=== PATIENT | male | born 1995 | race American Indian/Alaskan Native ===

== ENCOUNTER 2017-06-21 19:25 | Emergency (ER) | payer BC, OTHER ==
--- NOTE | 2017-06-21 22:38 | Emergency Department Report ---
HPI - General Chief Complaint: Dental/Oral Time Seen by Provider: 06/21/17 22:36 - HPI HPI: The patient is a 21-year-old male who presents to ED complaining of 8/10 pain in the right side of his mouth x 3 days . Patient states that the pain started 5 days ago and has increased in severity over the last 2 days. The pain is exacerbated by eating and opening of the mouth. Patient states that it radiates towards ear. Patient describes a as a throbbing, pressure-like sensation. Patient states otherwise well and has no other complaints. Patient has had no fevers and no chills. No chest pain, no shortness of breath. No abdominal pain. No shortness of breath or recent trauma to the face. ED Past Medical Hx - Past Medical History Previous Medical History?: No - Surgical History Past Surgical History?: No - Social History Smoking Status: Never Smoker Substance Use Type: None - Medications Home Medications: Home Medications Medication Instructions Recorded Confirmed Last Taken Type Acetaminophen/Codeine [Tylenol 1 tab PO Q6H #10 tablet 06/21/17 Unknown Rx /Codeine # 3 tab] Amoxicillin/K Clav Tab [Augmentin 1 each PO BID #20 tablet 06/21/17 Unknown Rx 875MG TAB] Ibuprofen [Motrin 400 MG tab] 400 mg PO Q8H PRN #20 tablet 06/21/17 Unknown Rx ED Review of Systems ROS: Stated complaint: TOOTHACHE Other details as noted in HPI Constitutional: denies: chills, fever Eyes: denies: eye pain, eye discharge, vision change ENT: dental pain. denies: ear pain, throat pain, hearing loss, congestion Respiratory: denies: cough, shortness of breath, wheezing Cardiovascular: denies: chest pain, palpitations Endocrine: no symptoms reported Gastrointestinal: denies: abdominal pain, nausea, diarrhea Genitourinary: denies: urgency, dysuria Musculoskeletal: denies: back pain, joint swelling, arthralgia Skin: denies: rash, lesions Neurological: denies: headache, weakness, paresthesias Psychiatric: denies: anxiety, depression Hematological/Lymphatic: denies: easy bleeding, easy bruising Physical Exam - Physical Exam Vital Signs: Vital Signs 06/21/17 19:35 Temperature 99.4 F Pulse Rate 57 L Respiratory 17 Rate Blood Pressure 135/95 O2 Sat by Pulse 99 Oximetry Physical Exam: GENERAL: Alert and oriented x3, no apparent distress, Normal Gait, atraumatic. HEAD: Head is normocephalic and a-traumatic. EYES: Extra ocular muscles are intact. Pupils are equal, round, and reactive to light and accommodation. EARS: symetrical, atraumatic, non tender, ear canal clear and moderate cerumen, tympanic membrance non inflamed. gross auditory nml bilaterally. NOSE: Nose symetrical, Nontender,Nares appeared normal. MOUTH:Mouth is well hydrated and without lesions. Tonsils nonerythematous or swollen, Uvula midline, Tongue not elevated. Mucous membranes are moist. Posterior pharynx clear, no exudate or lesions. Patent airways. tooth #30 shows dental caries and Gingival enlargement tooth #30, tenderness to palpation , nontoxic bleeding no pus discharge NECK: Supple. Non edematous, No carotid bruits. No lymphadenopathy or thyromegaly. No C-spine tenderness LUNGS: Symetrical with respiration, No wheezing, no rales or crackles, CTAB. HEART: S1, S2 present, regular rate and rhythm without murmur, no rubs, no gallops. Non tender to palpation PSYCHIATRIC: Mood is congruent with affect, denies suicidal or homicidal ideations. SKIN: Warm and dry, No lesions, No ulceration or induration present. ED Course Vital Signs 06/21/17 19:35 Temperature 99.4 F Pulse Rate 57 L Respiratory 17 Rate Blood Pressure 135/95 O2 Sat by Pulse 99 Oximetry ED Medical Decision Making - Medical Decision Making 21-year-old female who presents with righ-sided Facial pain secondary to odontogenic caries ED course: Patient received 875 mg Augmentin, Tylenol No. 3. Odontogenic infection versus ear infection. Based upon history and physical examination, pain is a result of an infection of tooth number 30 and that the pain Pt feels on the right side of his face and towards the ear is referred pain from this infectious process. Pt has no evidence of acute impending airway compromise. At this point, patient will be discharged home on some antibiotics and pain trial, he will do well with an outpatient course of antibiotics. Follow up with the Dental Clinic as referred Vital signs are normal patient is in no acute distress. Pt had an effect uneventful ED stay Critical care attestation.: If time is entered above; I have spent that time in minutes in the direct care of this critically ill patient, excluding procedure time. ED Disposition Clinical Impression: Dental abscess, Pain, dental Disposition: DC- TO HOME OR SELFCARE Is pt being admited?: No Does the pt Need Aspirin: No Condition: Stable Instructions: Dental Abscess (ED), Dental Caries (ED), Toothache (ED) Prescriptions: Acetaminophen/Codeine [Tylenol /Codeine # 3 tab] 1 tab PO Q6H #10 tablet Amoxicillin/K Clav Tab [Augmentin 875MG TAB] 1 each PO BID #20 tablet Ibuprofen [Motrin 400 MG tab] 400 mg PO Q8H PRN #20 tablet PRN Reason: Pain Referrals: PRIMARY CARE,MD [Primary Care Provider] - 3-5 Days [facility] [Outside] - 3-5 Days [facility] [Outside] - 3-5 Days Forms: Accompanied Note, Work/School Release Form(ED) Time of Disposition: 23:29
[2017-06-21] MEDS ORDERED: TYLENOL #3 PO ONE (23:05)
[2017-06-21] MEDS ORDERED: AUGMENTIN 875 MG PO ONE (23:05)
[2017-06-21 23:46] VITALS: BP 125/78
== END 2017-06-21 23:46 | disposition home or self-care (01) ==
LOC: ED 19:25
DX: K04.7 Periapical abscess without sinus (principal)
CPT/HCPCS: 99282

== ENCOUNTER 2018-05-31 16:12 | Emergency (ER) | payer SELFPAY ==
[2018-05-31 16:16] VITALS: BP 114/79
[2018-05-31] MEDS ORDERED: MOTRIN PO ONE (17:11)
--- NOTE | 2018-05-31 18:12 | Emergency Department Report ---
ED Upper Extremity Inj HPI - General Chief Complaint: Extremity Injury, Upper Stated Complaint: DISLOCATED FINGER Time Seen by Provider: 05/31/18 17:02 Source: patient Mode of arrival: Ambulatory Limitations: No Limitations - History of Present Illness Initial Comments: This is a 22-year-old male nontoxic, well nourished in appearance, no acute signs of distress presents to the ED with c/o of left index finger pain 3 days. Patient stated that he was playing basketball and injured his finger during playing basketball. Patient denies any other trauma. Patient denies any numbness, tingling, fever, chills, nausea, vomiting, chest pain, shortness of breath, headache, stiff neck. Patient denies any joint swelling or joint redness. Patient stated has decreased range of motion due to pain. Patient denies any allergies or significant past medical history. MD Complaint: Injury to:: left, finger -: days(s) (3) Other Extremity Injury: Fingers: Left Other Injuries: none Place: outdoors Severity scale (0 -10): 8 Improves With: immobilization Worsens With: movement of extremity Context: direct blow Associated Symptoms: denies other symptoms. denies: weakness, numbness, neck pain, suspects foreign body, nausea/vomiting, heard/felt popping sensat - Related Data Previous Rx's Medication Instructions Recorded Last Taken Type Acetaminophen/Codeine [Tylenol 1 tab PO Q6H #10 tablet 06/21/17 Unknown Rx /Codeine # 3 tab] Amoxicillin/K Clav Tab [Augmentin 1 each PO BID #20 tablet 06/21/17 Unknown Rx 875MG TAB] Ibuprofen [Motrin 400 MG tab] 400 mg PO Q8H PRN #20 tablet 06/21/17 Unknown Rx Ibuprofen [Motrin] 600 mg PO Q8H PRN #30 tablet 05/31/18 Unknown Rx Allergies Allergy/AdvReac Type Severity Reaction Status Date / Time No Known Allergies Allergy Verified 05/31/18 16:15 ED Review of Systems ROS: Stated complaint: DISLOCATED FINGER Other details as noted in HPI Constitutional: denies: chills, fever Eyes: denies: eye pain, eye discharge, vision change ENT: denies: ear pain, throat pain Respiratory: denies: cough, shortness of breath, wheezing Cardiovascular: denies: chest pain, palpitations Endocrine: no symptoms reported Gastrointestinal: denies: abdominal pain, nausea, diarrhea Genitourinary: denies: urgency, dysuria Musculoskeletal: denies: back pain, joint swelling, arthralgia Skin: denies: rash, lesions Neurological: denies: headache, weakness, paresthesias Psychiatric: denies: anxiety, depression Hematological/Lymphatic: denies: easy bleeding, easy bruising ED Past Medical Hx - Past Medical History Previous Medical History?: No - Surgical History Past Surgical History?: No - Social History Smoking Status: Current Every Day Smoker Substance Use Type: None - Medications Home Medications: Home Medications Medication Instructions Recorded Confirmed Last Taken Type Acetaminophen/Codeine [Tylenol 1 tab PO Q6H #10 tablet 06/21/17 Unknown Rx /Codeine # 3 tab] Amoxicillin/K Clav Tab [Augmentin 1 each PO BID #20 tablet 06/21/17 Unknown Rx 875MG TAB] Ibuprofen [Motrin 400 MG tab] 400 mg PO Q8H PRN #20 tablet 06/21/17 Unknown Rx Ibuprofen [Motrin] 600 mg PO Q8H PRN #30 tablet 05/31/18 Unknown Rx ED Physical Exam - General Limitations: No Limitations General appearance: alert, in no apparent distress - Head Head exam: Present: atraumatic, normocephalic - Eye Eye exam: Present: normal appearance - ENT ENT exam: Present: mucous membranes moist - Neck Neck exam: Present: normal inspection - Respiratory Respiratory exam: Present: normal lung sounds bilaterally. Absent: respiratory distress - Cardiovascular Cardiovascular Exam: Present: regular rate, normal rhythm. Absent: systolic murmur, diastolic murmur, rubs, gallop - GI/Abdominal GI/Abdominal exam: Present: soft, normal bowel sounds - Rectal Rectal exam: Present: deferred - Extremities Exam Extremities exam: Present: normal inspection, full ROM, tenderness, normal capillary refill. Absent: joint swelling - Expanded Upper Extremity Exam Left General: Present: normal inspection Shoulder Exam: Present: normal inspection, full ROM. Absent: tenderness, swelling Upper Arm exam: Present: normal inspection, full ROM. Absent: tenderness, swelling Elbow exam: Present: normal inspection, full ROM. Absent: tenderness, swelling Forearm Wrist exam: Present: normal inspection, full ROM. Absent: tenderness, swelling Hand Wrist exam: Present: normal inspection, full ROM, tenderness, swelling. Absent: abrasion, laceration, ecchymosis, deformity, crepidus, dislocation, erythema, amputation, nail avulsion, subungual hematoma Neuro motor exam: Present: wrist extension intact, thumb opposition intact, thumb IP flexion intact, thumb adduction intact, fingers 2-5 abduction intact Neurosensory exam: Present: 2-point discrimination, radial nerve intact, ulnar nerve intact, median nerve intact Vascular: Present: vascular compromise, normal capillary refill, radial pulse, brachial pulse, ulnar pulse - Back Exam Back exam: Present: normal inspection - Neurological Exam Neurological exam: Present: alert, oriented X3 - Psychiatric Psychiatric exam: Present: normal affect, normal mood - Skin Skin exam: Present: warm, dry, intact, normal color. Absent: rash ED Course Vital Signs 05/31/18 16:15 Temperature 98.4 F Pulse Rate 86 Respiratory 16 Rate Blood Pressure 114/79 O2 Sat by Pulse 98 Oximetry - Reevaluation(s) Reevaluation #1: 05/31/18 18:12 Patient is speaking in full sentences with no signs of distress noted. ED Medical Decision Making - Medical Decision Making This is a 22-year-old female that presents with left finger strain. Patient is stable and was examined by me. X-ray has been obtained and dictated by the radiologist. Patient is notified of the x-ray report with noted by the patient. Patient does have normal gait with no tenderness and no joint swelling. No ecchymosis. no joint redness or swelling. Not warm to touch. No signs of cellulites present. Patient received a sliver finger metal splint for pain comfort. Post splint assessment: neurovasular intact; normal cap refill < 2 second; normal sensation; denies decreaed sensation; normal ROM of digits.. Patient was instructed to RICE therapy. Patient received Motrin for pain. Patient is discharged with Motrin. At time of discharge, the patient does not seem toxic or ill in appearance. No acute signs of distress noted. Patient agrees to discharge treatment plan of care. No further questions noted by the patient. Critical care attestation.: If time is entered above; I have spent that time in minutes in the direct care of this critically ill patient, excluding procedure time. ED Disposition Clinical Impression: Sprain of left index finger Qualifiers: Encounter type: initial encounter Sprain of finger site: unspecified site Qualified Code(s): S63.611A - Unspecified sprain of left index finger, initial encounter Disposition: TO HOME OR SELFCARE Is pt being admited?: No Does the pt Need Aspirin: No Condition: Stable Instructions: Finger Sprain (ED), RICE Therapy (ED) Additional Instructions: Follow-up with a primary care doctor in 3-5 days or if symptoms worsen and continue return to emergency room as soon as possible. Prescriptions: Ibuprofen [Motrin] 600 mg PO Q8H PRN #30 tablet PRN Reason: Pain Referrals: PRIMARY CAREMD [Primary Care Provider] - 3-5 Days LUZ BUNCH MD [Staff Physician] - 3-5 Days [facility] [Outside] - 3-5 Days Forms: Work/School Release Form(ED)
--- NOTE | 2018-05-31 19:02 | XRay Report ---
FINAL REPORT PROCEDURE: XR HAND 3+V RT TECHNIQUE: RIGHT hand radiographs, AP, lateral, and oblique views. HISTORY: Right finger pain. COMPARISON: No prior studies are available for comparison. FINDINGS: Fracture (s) and/or Dislocation(s): None . Alignment: Normal . Joint space(s): Normal . Soft tissues: Normal . Bone mineralization: Normal . Foreign bodies: None . IMPRESSION: No radiographic evidence of acute abnormality.
== END 2018-05-31 19:14 | disposition home or self-care (01) ==
LOC: ED 16:12
DX: S63.611A Unspecified sprain of left index finger, initial encounter (principal); F17.200 Nicotine dependence, unspecified, uncomplicated; W22.8XXA Striking against or struck by other objects, initial encounter; Y93.67 Activity, basketball; Y99.8 Other external cause status; Y92.39 Other specified sports and athletic area as the place of occurrence of the external cause

== ENCOUNTER 2018-11-26 17:05 | Emergency (ER) | payer SELFPAY ==
[2018-11-26 17:47] VITALS: BP 104/66
--- NOTE | 2018-11-26 17:50 | Emergency Department Report ---
Blank Doc - Documentation Documentation: 23 y o female presents complaing of n/v with generalized body aches x 1 week pos cough, throat pain denies cp,sob, PLAN labs, ua reevaluate
--- NOTE | 2018-11-26 18:12 | Emergency Department Report ---
ED N/V/D HPI - General Chief complaint: Nausea/Vomiting/Diarrhea Stated complaint: FLU S/SX Time Seen by Provider: 11/26/18 17:46 Source: patient, family Mode of arrival: Ambulatory Limitations: No Limitations - History of Present Illness Initial comments: This is a 23-year-old male here report that he has generalized weakness and nausea and diarrhea over the last couple days. His mom said it has been 3 days he has been having some coughing also. Mom reported the patient was having 10 but she did not take his temperature but he felt hot and she gave him Advil at 3 PM. Patient said he is feeling weak all over. Denies any shortness of breath or chest pain. Denies any earache nasal congestion or runny nose. Denies any abdominal pain. Denies any blood in vomit or in diarrhea. Patient has no medical problems. Denies any wheezing or stridor. Denies any urinary burning, frequency or urgency and denies any back pain. MD complaint: nausea, vomiting, diarrhea, other (upper respiratory symptoms) Onset/Timin -: days(s) Description of Vomiting: bilious Description of Diarrhea: water Associated Abdominal Pain: No (generalized aching to body) Location: diffuse Pain Scale: 8 Quality: aching Consistency: constant Improves with: none Worsens with: none Context: other (unknown) Associated Symptoms: myalgias, cough, diaphoresis, fever/chills, loss of appetite, malaise, nausea/vomiting, weakness. denies: chest pain, headaches, rash, dysuria, shortness of breath, syncope - Related Data Previous Rx's Medication Instructions Recorded Last Taken Type Acetaminophen/Codeine [Tylenol 1 tab PO Q6H #10 tablet 06/21/17 Unknown Rx /Codeine # 3 tab] Amoxicillin/K Clav Tab [Augmentin 1 each PO BID #20 tablet 06/21/17 Unknown Rx 875MG TAB] Ibuprofen [Motrin 400 MG tab] 400 mg PO Q8H PRN #20 tablet 06/21/17 Unknown Rx Ibuprofen [Motrin] 600 mg PO Q8H PRN #30 tablet 05/31/18 Unknown Rx ALBUTEROL Inhaler(NF) [VENTOLIN 2 puff IH Q6H PRN 1 Days #1 inha 11/26/18 Unknown Rx Inhaler(NF)] Dicyclomine [Bentyl] 40 mg PO QID 3 Days #12 tablet 11/26/18 Unknown Rx Doxycycline [Vibramycin CAP] 100 mg PO Q12HR 10 Days #20 capsule 11/26/18 Unknown Rx Famotidine [Pepcid] 20 mg PO BID 6 Days #12 tablet 11/26/18 Unknown Rx Promethazine [Phenergan TAB] 25 mg PO Q6HR PRN #16 tab 11/26/18 Unknown Rx guaiFENesin/DEXTROMETHORPHAN 10 ml PO Q6H 5 Days #200 liquid 11/26/18 Unknown Rx [Robitussin Cough-Chest Dm Liq] Allergies Allergy/AdvReac Type Severity Reaction Status Date / Time No Known Allergies Allergy Verified 11/26/18 17:45 ED Review of Systems ROS: Stated complaint: FLU S/SX Other details as noted in HPI Constitutional: chills, fever, malaise Eyes: denies: eye discharge ENT: throat pain. denies: ear pain, congestion Respiratory: cough. denies: shortness of breath, SOB with exertion, wheezing Cardiovascular: denies: chest pain, palpitations, dyspnea on exertion, edema, syncope Gastrointestinal: nausea, vomiting, diarrhea. denies: abdominal pain, constipation, hematemesis, melena, hematochezia Genitourinary: denies: urgency, dysuria, hematuria Musculoskeletal: myalgia. denies: back pain, joint swelling, arthralgia Skin: denies: rash Neurological: denies: headache, numbness, paresthesias, confusion, abnormal gait, vertigo ED Past Medical Hx - Past Medical History Previous Medical History?: No - Surgical History Past Surgical History?: No - Family History Family history: no significant - Social History Smoking Status: Never Smoker Substance Use Type: None - Medications Home Medications: Home Medications Medication Instructions Recorded Confirmed Last Taken Type Acetaminophen/Codeine [Tylenol 1 tab PO Q6H #10 tablet 06/21/17 Unknown Rx /Codeine # 3 tab] Amoxicillin/K Clav Tab [Augmentin 1 each PO BID #20 tablet 06/21/17 Unknown Rx 875MG TAB] Ibuprofen [Motrin 400 MG tab] 400 mg PO Q8H PRN #20 tablet 06/21/17 Unknown Rx Ibuprofen [Motrin] 600 mg PO Q8H PRN #30 tablet 05/31/18 Unknown Rx ALBUTEROL Inhaler(NF) [VENTOLIN 2 puff IH Q6H PRN 1 Days #1 inha 11/26/18 Unknown Rx Inhaler(NF)] Dicyclomine [Bentyl] 40 mg PO QID 3 Days #12 tablet 11/26/18 Unknown Rx Doxycycline [Vibramycin CAP] 100 mg PO Q12HR 10 Days #20 capsule 11/26/18 Unknown Rx Famotidine [Pepcid] 20 mg PO BID 6 Days #12 tablet 11/26/18 Unknown Rx Promethazine [Phenergan TAB] 25 mg PO Q6HR PRN #16 tab 11/26/18 Unknown Rx guaiFENesin/DEXTROMETHORPHAN 10 ml PO Q6H 5 Days #200 liquid 11/26/18 Unknown Rx [Robitussin Cough-Chest Dm Liq] ED Physical Exam - General Limitations: No Limitations General appearance: alert, in no apparent distress - Head Head exam: Present: atraumatic, normocephalic, normal inspection, other (normal exam) - Eye Eye exam: Present: normal appearance, PERRL, EOMI Pupils: Present: normal accommodation - ENT ENT exam: Present: normal orophraynx, mucous membranes dry, TM's normal bilaterally, normal external ear exam. Absent: normal exam - Neck Neck exam: Present: normal inspection, full ROM, other (no C-spine tenderness). Absent: tenderness, lymphadenopathy - Respiratory Respiratory exam: Present: other (dry cough). Absent: normal lung sounds bilaterally, respiratory distress, wheezes, rales, rhonchi, stridor, chest wall tenderness, accessory muscle use, decreased breath sounds, prolonged expiratory - Cardiovascular Cardiovascular Exam: Present: regular rate, normal rhythm, normal heart sounds. Absent: systolic murmur, diastolic murmur - GI/Abdominal GI/Abdominal exam: Present: soft, normal bowel sounds. Absent: distended, tenderness, guarding, rebound, rigid, organomegaly, mass - Extremities Exam Extremities exam: Present: normal inspection, full ROM, normal capillary refill, other (No cce. + 2 pulses in all extremities, no neurovascular compromise). Absent: tenderness, pedal edema, joint swelling, calf tenderness - Back Exam Back exam: Present: normal inspection, full ROM, other (ambulates without any difficulties). Absent: tenderness, CVA tenderness (R), CVA tenderness (L), muscle spasm, paraspinal tenderness, vertebral tenderness, rash noted - Neurological Exam Neurological exam: Present: alert, oriented X3, normal gait, reflexes normal, other (no focal deficits). Absent: motor sensory deficit - Psychiatric Psychiatric exam: Present: normal affect, normal mood - Skin Skin exam: Present: warm, dry, intact, normal color. Absent: rash ED Course Vital Signs 11/26/18 11/26/18 11/26/18 17:45 21:23 21:48 Temperature 98.6 F Pulse Rate 87 Pulse Rate [ 63 65 Anterior Bilateral Throughout] Respiratory 16 Rate Respiratory 16 14 Rate [Anterior Bilateral Throughout] Blood Pressure 104/66 O2 Sat by Pulse 98 Oximetry 11/26/18 23:22 Temperature Pulse Rate 75 Pulse Rate [ Anterior Bilateral Throughout] Respiratory 16 Rate Respiratory Rate [Anterior Bilateral Throughout] Blood Pressure O2 Sat by Pulse 98 Oximetry - Reevaluation(s) Reevaluation #1: 11/26/18 20:26 Patient was given normal saline 1 L, Zofran 8 mg IV, Bentyl 40 mg by mouth, lidocaine 15 mL and Maalox 30 mL and emergency room and he said he felt better. Reevaluation #2: 11/26/18 22:26 Patient was also given a second liter of IV fluid for dehydration. Patient is feeling a lot better. Was found to have pneumonia and has left lower lobe and I spoke with Dr. Figueredo emergency room attending doctor and it was agreed on that patient will be placed on Zithromax IV 1 dose and sent home on doxycycline. Patient lab work is stable to include CBC, and CMP. His CBC shows that he had some hemoconcentration and urinalysis shows the patient would small amount of ketones in his urine. Patient received albuterol 5 mg nebulizer and Xopenex 1 mg nebulizer and his lung sounds remained clear throughout ED stay ED Medical Decision Making - Lab Data Result diagrams: 11/26/18 17:53 11/26/18 17:53 Lab Results 11/26/18 11/26/18 11/26/18 Range/Units 17:53 17:53 18:22 WBC 7.7 (4.5-11.0) K/mm3 RBC 5.82 H (3.65-5.03) M/mm3 Hgb 17.7 H (11.8-15.2) gm/dl Hct 50.7 H (35.5-45.6) % MCV 87 (84-94) fl MCH 30 (28-32) pg MCHC 35 H (32-34) % RDW 12.8 L (13.2-15.2) % Plt Count 170 (140-440) K/mm3 Lymph % (Auto) 22.8 (13.4-35.0) % Dane % (Auto) 7.9 H (0.0-7.3) % Eos % (Auto) 0.0 (0.0-4.3) % Baso % (Auto) 1.1 (0.0-1.8) % Lymph # 1.8 (1.2-5.4) K/mm3 Dane # 0.6 (0.0-0.8) K/mm3 Eos # 0.0 (0.0-0.4) K/mm3 Baso # 0.1 (0.0-0.1) K/mm3 Seg Neutrophils % 68.2 (40.0-70.0) % Seg Neutrophils # 5.2 (1.8-7.7) K/mm3 Sodium 137 (137-145) mmol/L Potassium 3.7 (3.6-5.0) mmol/L Chloride 97.0 L (98-107) mmol/L Carbon Dioxide 25 (22-30) mmol/L Anion Gap 19 mmol/L BUN 18 (9-20) mg/dL Creatinine 0.9 (0.8-1.5) mg/dL Estimated GFR > 60 ml/min BUN/Creatinine Ratio 20 % Glucose 92 (75-100) mg/dL Calcium 9.3 (8.4-10.2) mg/dL Total Bilirubin 0.60 (0.1-1.2) mg/dL AST 24 (5-40) units/L ALT 13 (7-56) units/L Alkaline Phosphatase 69 (35-129) units/L Total Protein 8.1 (6.3-8.2) g/dL Albumin 4.5 (3.9-5) g/dL Albumin/Globulin Ratio 1.3 % Lipase 13 (13-60) units/L Urine Color Manda (Yellow) Urine Turbidity Clear (Clear) Urine pH 5.0 (5.0-7.0) Ur Specific [place] 1.027 (1.003-1.030) Urine Protein 100 mg/dl (Negative) mg/dL Urine Glucose (UA) Neg (Negative) mg/dL Urine Ketones Tr (Negative) mg/dL Urine Blood Neg (Negative) Urine Nitrite Neg (Negative) Urine Bilirubin Neg (Negative) Urine Urobilinogen < 2.0 (<2.0) mg/dL Ur Leukocyte Esterase Neg (Negative) Urine WBC (Auto) 6.0 (0.0-6.0) /HPF Urine RBC (Auto) < 1.0 (0.0-6.0) /HPF U Epithel Cells (Auto) 1.0 (0-13.0) /HPF Urine Bacteria (Auto) 1+ (Negative) /HPF Urine Mucus 3+ /HPF Influenza A (Rapid) (Negative) Influenza B (Rapid) (Negative) 11/26/18 Range/Units 18:45 WBC (4.5-11.0) K/mm3 RBC (3.65-5.03) M/mm3 Hgb (11.8-15.2) gm/dl Hct (35.5-45.6) % MCV (84-94) fl MCH (28-32) pg MCHC (32-34) % RDW (13.2-15.2) % Plt Count (140-440) K/mm3 Lymph % (Auto) (13.4-35.0) % Dane % (Auto) (0.0-7.3) % Eos % (Auto) (0.0-4.3) % Baso % (Auto) (0.0-1.8) % Lymph # (1.2-5.4) K/mm3 Dane # (0.0-0.8) K/mm3 Eos # (0.0-0.4) K/mm3 Baso # (0.0-0.1) K/mm3 Seg Neutrophils % (40.0-70.0) % Seg Neutrophils # (1.8-7.7) K/mm3 Sodium (137-145) mmol/L Potassium (3.6-5.0) mmol/L Chloride (98-107) mmol/L Carbon Dioxide (22-30) mmol/L Anion Gap mmol/L BUN (9-20) mg/dL Creatinine (0.8-1.5) mg/dL Estimated GFR ml/min BUN/Creatinine Ratio % Glucose (75-100) mg/dL Calcium (8.4-10.2) mg/dL Total Bilirubin (0.1-1.2) mg/dL AST (5-40) units/L ALT (7-56) units/L Alkaline Phosphatase (35-129) units/L Total Protein (6.3-8.2) g/dL Albumin (3.9-5) g/dL Albumin/Globulin Ratio % Lipase (13-60) units/L Urine Color (Yellow) Urine Turbidity (Clear) Urine pH (5.0-7.0) Ur Specific [place] (1.003-1.030) Urine Protein (Negative) mg/dL Urine Glucose (UA) (Negative) mg/dL Urine Ketones (Negative) mg/dL Urine Blood (Negative) Urine Nitrite (Negative) Urine Bilirubin (Negative) Urine Urobilinogen (<2.0) mg/dL Ur Leukocyte Esterase (Negative) Urine WBC (Auto) (0.0-6.0) /HPF Urine RBC (Auto) (0.0-6.0) /HPF U Epithel Cells (Auto) (0-13.0) /HPF Urine Bacteria (Auto) (Negative) /HPF Urine Mucus /HPF Influenza A (Rapid) Negative (Negative) Influenza B (Rapid) Negative (Negative) Blood cultures 2 sent - Radiology Data Radiology results: report reviewed X-ray of abdomen 2 view and chest x-ray dictated by radiologist and reviewed by myself [facility] [address] [place] [address] XRay Report Signed Patient: IVA HATFIELD MR#: [id number] : 1995 Acct:[id number] Age/Sex: 23 / M ADM Date: 11/26/18 Loc: ED Attending Dr: Ordering Physician: FAISAL YOU Date of Service: 11/26/18 Procedure(s): XR abdomen 2V Accession Number(s): [id number] cc: FAISAL YOU Fluoro Time In Minutes: FINAL REPORT EXAM: XR ABDOMEN 2V HISTORY: NVD, fever TECHNIQUE: Supine and upright views of the abdomen. PRIORS: None. FINDINGS: The bowel gas pattern appears normal. There is no evidence of ileus or obstruction. There are no suspicious calcifications. The bones and soft tissues are unremarkable. IMPRESSION: No evidence of acute abdominal disease. Transcribed By: SALLY Dictated By: EVAN MIJARES MD Electronically Authenticated By: EVAN MIJARES MD Signed Date/Time: 11/26/182009 DD/ 08 TD/TT: 11/26/182008 Findings [facility] [address] [place] [address] XRay Report Signed Patient: IVA HATFIELD MR#: [id number] : 1995 Acct:[id number] Age/Sex: 23 / M ADM Date: 11/26/18 Loc: ED Attending Dr: Ordering Physician: FAISAL YOU Date of Service: 11/26/18 Procedure(s): XR chest routine 2V Accession Number(s): [id number] cc: FAISAL YOU Fluoro Time In Minutes: FINAL REPORT EXAM: XR CHEST ROUTINE 2V HISTORY: cough, fever, TECHNIQUE: 2 views of the chest. PRIORS: None. FINDINGS: The cardiomediastinal silhouette appears normal. There is a mild left upper lobe airspace infiltrate. The right lung is clear. The bones and soft tissues are unremarkable. IMPRESSION: Mild left upper lobe airspace infiltrate consistent with pneumonia Transcribed By: SALLY Dictated By: EVAN MIJARES MD Electronically Authenticated By: EVAN MIJARES MD Signed Date/Time: 11/26/182034 DD/ 33 TD/TT: 11/26/182033 - Medical Decision Making This is a 23-year-old male well-nourished well-developed and here for gastroenteritis or a problem with complaint of fever and cough. Chest x-ray shows patient with pneumonia to mid lobe, lab work show hemoconcentration CBC, chemistry stable and urinalysis is stable. The cultures 2 sent. Patient was given medication for nausea vomiting and diarrhea to include Bentyl, lidocaine and Maalox to sooth stomach,. To he was also given IV fluid normal saline 2 L and Zofran IV for nausea. I discussed lab results and x-ray results the patient and he was understanding. Patient given Zithromax 500 mg IV to cover pneumonia. I spoke with Dr. Figueredo and he is in agreement with treatment plan. Patient to be discharged home on doxycycline and albuterol HFA and Robitussin-DM to cover pneumonia, cough. He is to follow-up with his primary care physician or if not [facility] in 3 days and if condition worsens to return to the emergency room - Differential Diagnosis PNA, viral syndrome, pancreatitis, liver disease OBS, gastroenteritis, UTI Critical care attestation.: If time is entered above; I have spent that time in minutes in the direct care of this critically ill patient, excluding procedure time. ED Disposition Clinical Impression: Cough in adult, Nausea vomiting and diarrhea Pneumonia, community acquired Qualifiers: Laterality: left Lung location: upper lobe of lung Qualified Code(s): J18.1 - Lobar pneumonia, unspecified organism Disposition: TO HOME OR SELFCARE Is pt being admited?: No Does the pt Need Aspirin: No Condition: Stable Instructions: Dehydration (ED), Gastroenteritis (ED), Acute Nausea and Vomiting (ED), Acute Diarrhea (ED), Community-acquired Pneumonia (ED), Nutrition Tips for Relief of Diarrhea (ED), Acute Cough (ED) Additional Instructions: Please follow up with primary care physician in 3 days and if you do not have a primary care physician follow-up at [facility] Start taking doxycycline and at 10 AM in the morning and take it twice a day for 10 days. Use albuterol inhaler every 6 hours 2 days and then as needed If you develop fever and/or pain . take 500 mg OTC Tylenol every 6 hours as needed. Do not exceed 4 g daily Increase her fluid intake to 2-3 L of water daily. Take Bentyl, Phenergan nausea and vomiting. Please do not drive or operate heavy machinery while taking Phenergan as this medication causes drowsiness Start with diet that includes banana, rice, applesauce and toast, Gatorade and water and after 3 days he can advance slowly. Prescriptions: ALBUTEROL Inhaler(NF) [VENTOLIN Inhaler(NF)] 2 puff IH Q6H PRN 1 Days #1 inha PRN Reason: cough and wheezing Dicyclomine [Bentyl] 40 mg PO QID 3 Days #12 tablet Doxycycline [Vibramycin CAP] 100 mg PO Q12HR 10 Days #20 capsule Famotidine [Pepcid] 20 mg PO BID 6 Days #12 tablet guaiFENesin/DEXTROMETHORPHAN [Robitussin Cough-Chest Dm Liq] 10 ml PO Q6H 5 Days #200 liquid Promethazine [Phenergan TAB] 25 mg PO Q6HR PRN #16 tab PRN Reason: Nausea Referrals: SHERI WOODS MD [Primary Care Provider] - 11/29/18 [facility] [Outside] - 11/29/18 Forms: Accompanied Note, Work/School Release Form(ED)
[2018-11-26 18:15] LABS: Basophils # (Auto) 0.1 K/mm3 (0.0-0.1); Basophils % (Auto) 1.1 % (0.0-1.8); Hematocrit 50.7 % (35.5-45.6); Hemoglobin 17.7 gm/dl (11.8-15.2); Lymphocytes # (Auto) 1.8 K/mm3 (1.2-5.4); Lymphocytes % (Auto) 22.8 % (13.4-35.0); Mean Corpuscular HGB Conc 35 % (32-34); Mean Corpuscular Volume 87 fl (84-94); Monocytes # (Auto) 0.6 K/mm3 (0.0-0.8); Monocytes % (Auto) 7.9 % (0.0-7.3); Platelet Count 170 K/mm3 (140-440); Red Blood Count 5.82 M/mm3 (3.65-5.03); Red Cell Distribution Width 12.8 % (13.2-15.2)
[2018-11-26 18:37] LABS: Alanine Aminotransferase 13 units/L (7-56); Albumin 4.5 g/dL (3.9-5); BUN/Creatinine Ratio 20; Blood Urea Nitrogen 18 mg/dL (9-20); Calcium 9.3 mg/dL (8.4-10.2); Hemolysis Index 13
[2018-11-26] MEDS ORDERED: ALUM-MAG HYDROX-SIMETH 200-200-20MG/5ML PO ONE (18:37)
[2018-11-26] MEDS ORDERED: LIDOCAINE VISCOUS 2% PO ONE (18:37)
[2018-11-26] MEDS ORDERED: NACL 0.9% 1000 ML 1,000 ML IV ONE (18:37)
[2018-11-26] MEDS ORDERED: ZOFRAN IV ONE (18:37)
[2018-11-26 18:41] LABS: Bilirubin,Urine NEG (Negative); Color,Urine Amber (Yellow)
[2018-11-26 18:42] LABS: Bacteria,Urine 1+ /HPF (Negative); Blood,Urine NEG (Negative); Mucus,Urine 3+ /HPF; RBC,Urine < 1.0 /HPF (0.0-6.0); Urobilinogen,Urine < 2.0 mg/dL (<2.0)
[2018-11-26] MEDS ORDERED: BENTYL ONE ×2 (18:43→18:45)
[2018-11-26] MEDS: BENTYL PO ONE ×2 (18:50→18:57)
[2018-11-26] MEDS: NACL 0.9% 1000 ML 1,000 ML IV ONE ×2 (19:50→19:51)
--- NOTE | 2018-11-26 20:10 | XRay Report ---
FINAL REPORT EXAM: XR ABDOMEN 2V HISTORY: NVD, fever TECHNIQUE: Supine and upright views of the abdomen. PRIORS: None. FINDINGS: The bowel gas pattern appears normal. There is no evidence of ileus or obstruction. There are no susp icious calcifications. The bones and soft tissues are unremarkable. IMPRESSION: No evidence of acute abdominal disease.
--- NOTE | 2018-11-26 20:35 | XRay Report ---
FINAL REPORT EXAM: XR CHEST ROUTINE 2V HISTORY: cough, fever, TECHNIQUE: 2 views of the chest. PRIORS: None. FINDINGS: The cardiomediastinal silhouette appears normal. There is a mild left upper lobe airspace infiltrate. The right lung is clear. The bones and soft tissues are unremarkable. IMPRESSION: Mild left upper lobe airspace infiltrate consistent with pneumonia
[2018-11-26] MEDS ORDERED: ZITHROMAX 500 MG in NACL 0.9% 250ML 250 ML IV ONE (21:14)
[2018-11-26] MEDS ORDERED: PROVENTIL IH ONE (21:15)
[2018-11-26] MEDS ORDERED: ATROVENT IH ONE (21:15)
== END 2018-11-26 23:22 | disposition home or self-care (01) ==
LOC: ED 17:05
DX: J18.1 Lobar pneumonia, unspecified organism (principal); K52.9 Noninfective gastroenteritis and colitis, unspecified; M79.10 Myalgia, unspecified site; E86.0 Dehydration; R11.2 Nausea with vomiting, unspecified
CPT/HCPCS: 36415; 71046; 74019; 80053; 81001; 83690; 85025; 87040; 87400; 94640; 96361; 96365; 96375; 99284; J0456; J2405; J7030; J7050